=== PATIENT | female | born 1955 | race Caucasian/White ===

== ENCOUNTER 2021-05-28 10:21 | Emergency (ER) | payer MEDICARE ==
[2021-05-28 10:27] VITALS: TEMP 98
[2021-05-28] MEDS ORDERED: ASPIRIN 81 MG PO STA (10:47)
[2021-05-28 11:19] LABS: Basophils # (A) 0.1 k/uL (0-0.2); Basophils % (A) 1 %; Eosinophils # (A) 0.1 k/uL (0-0.7); Eosinophils % (A) 1 %; HGB 13.5 gm/dL (11.4-16.0); Lymphocytes # (A) 2.8 k/uL (1.0-4.8); Lymphocytes % (A) 30 %; MCH 29.1 pg (25.0-35.0); MCHC 32.2 g/dL (31.0-37.0); MCV 90.4 fL (80.0-100.0); Mean Platelet Volume 7.2; Monocytes # (A) 0.4 k/uL (0-1.0); Monocytes % (A) 4 %; Neutrophils # (A) 5.6 k/uL (1.3-7.7); Neutrophils % (A) 62 %; Platelet Count 314 k/uL (150-450); RBC 4.65 m/uL (3.80-5.40); RDW 13.9 % (11.5-15.5); WBC 9.1 k/uL (3.8-10.6)
--- NOTE | 2021-05-28 11:34 | XR ---
EXAMINATION TYPE: XR chest 2V DATE OF EXAM: 05/28/2021 COMPARISON: 06/09/2015 HISTORY: 66-year-old female with chest pain and chest pressure TECHNIQUE: Frontal and lateral views FINDINGS: The cardiomediastinal silhouette, aorta, and pulmonary vasculature are within normal limits. Relative mild upper lung lucency. Lungs and pleural spaces are clear. IMPRESSION: There may be some underlying emphysematous change. Otherwise, no acute process seen.
[2021-05-28 11:41] LABS: INR 0.9 (<1.2); Partial Thromboplastin Time 22.2 sec (22.0-30.0); Prothrombin Time 9.5 sec (9.0-12.0)
[2021-05-28 11:53] LABS: ALT 20 U/L (4-34); AST 22 U/L (14-36); African American GFR (CKD) >90 (>60 ml/min/1.73 sqM); Albumin 4.4 g/dL (3.5-5.0); Alkaline Phosphatase 108 U/L (38-126); Anion Gap 12 mmol/L; Blood Urea Nitrogen 18 mg/dL (7-17); Calcium 9.7 mg/dL (8.4-10.2); Carbon Dioxide 26 mmol/L (22-30); Chloride 102 mmol/L (98-107); Glucose 133 mg/dL (74-99); Magnesium 1.8 mg/dL (1.6-2.3); Non-African American GFR(CKD) >90 (>60 ml/min/1.73 sqM); Potassium 4.7 mmol/L (3.5-5.1); Sodium 140 mmol/L (137-145); Total Bilirubin 0.2 mg/dL (0.2-1.3); Total Protein 7.7 g/dL (6.3-8.2)
--- NOTE | 2021-05-28 12:23 | ED ---
General Adult HPI - General Chief complaint: Chest Pain Stated complaint: chest pain, dizziness Time Seen by Provider: 05/28/21 10:30 Source: patient Mode of arrival: ambulatory Limitations: no limitations - History of Present Illness Initial comments: Patient is a 66-year-old female with past medical history remarkable for diabetes, hypertension, thyroid disorder, liver disease. Patient presents emergency Department complaining of a two-week history of on again off again chest pressure with an associated near syncopal episode 1-2 hours prior to ar rival. She is grossly pain as a pressure sensation over her chest that comes and goes with no known palliative or provocative factors over the last 2 weeks. Denies any shortness of breath with it. States she has had a near syncopal episode where she felt lightheaded earlier and had a very brief episode of nausea at that time. She became concerned and wanted to be evaluated. She states this has happened previously, and resolved with starting metoprolol. She is no other acute complaints at this time. Denies any history of blood clots. Denies any fevers, chills, sick contacts. Patient was vaccinated for COVID-19. - Related Data Home Medications Medication Instructions Recorded Confirmed Dicyclomine [Bentyl] 10 mg PO BID 06/07/15 05/28/21 Levothyroxine Sodium [Synthroid] 25 mcg PO DAILY 06/07/15 05/28/21 L.acidoph,Paracasei, B.lactis 1 cap PO DAILY 06/08/15 05/28/21 [Probiotic] Calcium Carbonate/Vitamin D3 1 tab PO DAILY 05/28/21 05/28/21 [Calcium 500 mg-Vit D3 5 mcg (200 Unit)] Cetirizine HCl [Zyrtec] 10 mg PO DAILY PRN 05/28/21 05/28/21 Pravastatin Sodium [Pravachol] 10 mg PO AC-SUPPER 05/28/21 05/28/21 lisinopriL [Zestril] 20 mg PO DAILY 05/28/21 05/28/21 metFORMIN HCL [Glucophage XR] 750 mg PO BID 05/28/21 05/28/21 Allergies Allergy/AdvReac Type Severity Reaction Status Date / Time doxycycline [From Vibramycin] Allergy Anaphylaxis Verified 05/28/21 11:25 tetracycline Allergy Anaphylaxis Verified 05/28/21 11:25 lorazepam [From Ativan] AdvReac Nausea & Verified 05/28/21 11:25 Vomiting phenazopyridine HCl AdvReac Kidney Pain Verified 05/28/21 11:25 [From Pyridium] Review of Systems ROS Statement: Those systems with pertinent positive or pertinent negative responses have been documented in the HPI. Review of Systems: CONST: Denies fever EYES: Denies blurry vision ENT: Denies nasal congestion C/V: Endorses chest pain RESP: Denies shortness of breath GI: Denies abdominal pain : Denies dysuria SKIN: Denies rash. MSK: Denies joint pain. NEURO: Denies headache ROS Other: All systems not noted in ROS Statement are negative. Past Medical History Past Medical History: Diabetes Mellitus, GERD/Reflux, Hyperlipidemia, Hypertension, Liver Disease, Thyroid Disorder History of Any Multi-Drug Resistant Organisms: None Reported Past Surgical History: Cholecystectomy, Hysterectomy, Tonsillectomy Additional Past Surgical History / Comment(s): Patient had a colonoscopy with minimal polyps removal Past Psychological History: No Psychological Hx Reported Smoking Status: Former smoker Past Alcohol Use History: Occasional Past Drug Use History: None Reported - Past Family History Mother Family Medical History: No Reported History (Mother at age of 50 from [place] accident) Father Family Medical History: Unable to Obtain (Patient is adopted she doesn't know much about her parents) General Exam - General Exam Comments Initial Comments: General: Appears in no acute distress. HEAD: Normal with no signs of head trauma. EYES: PERRLA, EOMI, conjunctiva normal, no discharge. ENT: Hearing grossly intact, normal oropharynx. RESPIRATORY: Clear breath sounds bilaterally. No wheezes, rales, or rhonchi. C/V: Regular rate and rhythm. S1 and S2 auscultated, no edema, peripheral pulses 2+ and intact throughout ABD: Abd is soft, nontender, nondistended EXT: Normal range of motion, no obvious deformity SKIN: No rashes or lesions observed on exposed skin. NEURO: Alert and oriented x 4. Cranial nerves II-XII intact. No focal sensory or strength deficits. Limitations: no limitations Course Vital Signs 05/28/21 05/28/21 10:23 12:34 Temperature 98 F Pulse Rate 72 81 Respiratory 18 16 Rate Blood Pressure 177/98 123/80 O2 Sat by Pulse 99 98 Oximetry Medical Decision Making - Medical Decision Making Based on the patient's presentation and physical exam, I'm concerned for possible cardiac etiology for her current symptoms. With the chronicity of the chest pain, as well as the nursing episodes today cannot rule out possibility of pulmonary embolus and. She is low risk for PE, therefore we will obtain a sc reening d-dimer in addition to troponin, EKG, chest x-ray. She'll be administered an aspirin. She was in agreement this plan. Single troponin should be sufficient, as the patient has been having this chest pain for multiple weeks. EKG showed no signs of acute ischemia. PACs are present. Patient's chest x-ray reveals no acute cardiopulmonary process. Laboratory studies were obtained and revealed negative troponin, normal d-dimer. Laboratory studies are otherwise unremarkable. On reevaluation, patient is feeling improved. Chest pain is resolved. I discussed the normal workup with the patient. Patient's heart score is low at 3 points. At this time I do believe it is safe for her to be discharged home with close follow-up with cardiology. She was in agreement this plan. I instructed the patient to follow up with their PCP in the next 3 days. [I provided contact information for follow up with] [facility]. I explained that the patient should return to the emergency department if they experience any worsening symptoms. Strict return precautions were discussed with the patient. The patient expressed understanding of these instructions. I answered all questions that the patient had. The patient was discharged home in. Condition with their prescriptions and follow up information. - Lab Data Result diagrams: 05/28/21 11:03 05/28/21 11:03 Lab Results 05/28/21 05/28/21 05/28/21 Range/Units 11:03 11:03 11:03 WBC 9.1 (3.8-10.6) k/uL RBC 4.65 (3.80-5.40) m/uL Hgb 13.5 (11.4-16.0) gm/dL Hct 42.0 (34.0-46.0) % MCV 90.4 (80.0-100.0) fL MCH 29.1 (25.0-35.0) pg MCHC 32.2 (31.0-37.0) g/dL RDW 13.9 (11.5-15.5) % Plt Count 314 (150-450) k/uL MPV 7.2 Neutrophils % 62 % Lymphocytes % 30 % Monocytes % 4 % Eosinophils % 1 % Basophils % 1 % Neutrophils # 5.6 (1.3-7.7) k/uL Lymphocytes # 2.8 (1.0-4.8) k/uL Monocytes # 0.4 (0-1.0) k/uL Eosinophils # 0.1 (0-0.7) k/uL Basophils # 0.1 (0-0.2) k/uL PT 9.5 (9.0-12.0) sec INR 0.9 (<1.2) APTT 22.2 (22.0-30.0) sec D-Dimer 0.34 (<0.60) mg/L FEU Sodium 140 (137-145) mmol/L Potassium 4.7 (3.5-5.1) mmol/L Chloride 102 (98-107) mmol/L Carbon Dioxide 26 (22-30) mmol/L Anion Gap 12 mmol/L BUN 18 H (7-17) mg/dL Creatinine 0.50 L (0.52-1.04) mg/dL Est GFR (CKD-EPI)AfAm >90 (>60 ml/min/1.73 sqM) Est GFR (CKD-EPI)NonAf >90 (>60 ml/min/1.73 sqM) Glucose 133 H (74-99) mg/dL Calcium 9.7 (8.4-10.2) mg/dL Magnesium 1.8 (1.6-2.3) mg/dL Total Bilirubin 0.2 (0.2-1.3) mg/dL AST 22 (14-36) U/L ALT 20 (4-34) U/L Alkaline Phosphatase 108 (38-126) U/L Troponin I (0.000-0.034) ng/mL Total Protein 7.7 (6.3-8.2) g/dL Albumin 4.4 (3.5-5.0) g/dL 05/28/21 Range/Units 11:03 WBC (3.8-10.6) k/uL RBC (3.80-5.40) m/uL Hgb (11.4-16.0) gm/dL Hct (34.0-46.0) % MCV (80.0-100.0) fL MCH (25.0-35.0) pg MCHC (31.0-37.0) g/dL RDW (11.5-15.5) % Plt Count (150-450) k/uL MPV Neutrophils % % Lymphocytes % % Monocytes % % Eosinophils % % Basophils % % Neutrophils # (1.3-7.7) k/uL Lymphocytes # (1.0-4.8) k/uL Monocytes # (0-1.0) k/uL Eosinophils # (0-0.7) k/uL Basophils # (0-0.2) k/uL PT (9.0-12.0) sec INR (<1.2) APTT (22.0-30.0) sec D-Dimer (<0.60) mg/L FEU Sodium (137-145) mmol/L Potassium (3.5-5.1) mmol/L Chloride (98-107) mmol/L Carbon Dioxide (22-30) mmol/L Anion Gap mmol/L BUN (7-17) mg/dL Creatinine (0.52-1.04) mg/dL Est GFR (CKD-EPI)AfAm (>60 ml/min/1.73 sqM) Est GFR (CKD-EPI)NonAf (>60 ml/min/1.73 sqM) Glucose (74-99) mg/dL Calcium (8.4-10.2) mg/dL Magnesium (1.6-2.3) mg/dL Total Bilirubin (0.2-1.3) mg/dL AST (14-36) U/L ALT (4-34) U/L Alkaline Phosphatase (38-126) U/L Troponin I <0.012 (0.000-0.034) ng/mL Total Protein (6.3-8.2) g/dL Albumin (3.5-5.0) g/dL - EKG Data -: EKG Interpreted by Me EKG Comments: 12-lead Electrocardiogram Interpretation Note EKG was reviewed and interpreted by myself. 12-lead ECG performed at 1032 is interpreted by me as revealing normal sinus rhythm at a rate of 81 beats per minute. [place] is normal. TN interval is 140 ms, QRS duration is 80.0 seconds, QTC is 441 ms. Patient does appear to have PACs present.. There were no ST or T wave abnormalities to suggest myocardial ischemia or injury. R wave progressio n across the precordium was satisfactory. By my interpretation this EKG is non- diagnostic for acute ischemia. Disposition Clinical Impression: Chest pain, Near syncope Disposition: HOME SELF-CARE Condition: Good Instructions (If sedation given, give patient instructions): Chest Pain (ED) Is patient prescribed a controlled substance at d/c from ED?: No Referrals: Justino Ty MD [Primary Care Provider] - 1-2 days Aly Salgado MD [STAFF PHYSICIAN] - 1-2 days
[2021-05-28 12:35] VITALS: BP 123/80; PULSE 81; RESP 16
== END 2021-05-28 12:34 | disposition home or self-care (01) ==
LOC: EC 10:21
DX: R07.89 Other chest pain (principal); R55 Syncope and collapse; I10 Essential (primary) hypertension; E11.9 Type 2 diabetes mellitus without complications; E78.5 Hyperlipidemia, unspecified; E07.9 Disorder of thyroid, unspecified; Z88.1 Allergy status to other antibiotic agents; Z87.891 Personal history of nicotine dependence; Z88.8 Allergy status to other drugs, medicaments and biological substances; Z79.899 Other long term (current) drug therapy; Z79.890 Hormone replacement therapy; Z79.84 Long term (current) use of oral hypoglycemic drugs
CPT/HCPCS: 36415; 71046; 80053; 83735; 84484; 85025; 85379; 85610; 85730; 93005; 99285